=== PATIENT | male | born 1945 | race Caucasian/White ===

== ENCOUNTER 2017-06-26 03:20 | Inpatient (IN) | payer OTHER, MEDICARE ==
[2017-06-26] VITALS (14 sets, daily range): BP systolic 150–178; BP diastolic 66–108; PULSE 102–124; RESP 18–28; TEMP 97.3–98.6; O2SAT 93–100
[~2017-06-26] VITALS: Ht 172.7 cm; Wt 86.4 kg
--- NOTE | 2017-06-26 03:35 | PD ---
HPI Chief Complaint: Respiratory Distress Time Seen by Provider: 03:22 Travel History International Travel<30 days: No Contact w/Intl Traveler<30days: No Traveled to known affect area: No History of Present Illness HPI 71-year-old male complains of shortness of breath. Patient has history of COPD. Patient started having shortness of breath tonight. Patient denies any chest pain. Patient denies any fever or coughing congestion. PFSH Past Medical History Asthma: Yes Diminished Hearing: No Hypertension: Yes Tetanus Vaccination: Unknown Influenza Vaccination: No Past Surgical History Surgical History: Unable to Obtain Social History Alcohol Use: No Tobacco Use: No Substance Use: No Allergies-Medications (Allergen,Severity, Reaction): Coded Allergies: HMG-CoA Reductase Inhibitors (Verified Allergy, Unknown, 06/26/17) Singulair (Verified Allergy, Unknown, 06/26/17) Review of Systems General / Constitutional: No: Fever Eyes: No: Visual changes HENT: No: Headaches Cardiovascular: No: Chest Pain or Discomfort Respiratory: Positive: Shortness of Breath Gastrointestinal: No: Abdominal Pain Genitourinary: No: Dysuria Musculoskeletal: No: Pain Skin: No Rash Neurologic: No: Weakness Psychiatric: No: Depression Endocrine: No: Polydipsia Hematologic/Lymphatic: No: Easy Bruising Physical Exam Narrative GENERAL: Well-nourished, well-developed patient. Patient's tachypnea, moderate respiratory distress. SKIN: Focused skin assessment warm/dry. HEAD: Normocephalic. EYES: No scleral icterus. No injection or drainage. NECK: Supple, trachea midline. No JVD or lymphadenopathy. CARDIOVASCULAR: Regular rate and rhythm without murmurs, gallops, or rubs. RESPIRATORY: Patient has moderate expiratory wheezes bilaterally. Decreased breath sounds bilaterally. Few rhonchi at the bases. GASTROINTESTINAL: Abdomen soft, non-tender, nondistended. MUSCULOSKELETAL: No cyanosis, or edema. BACK: Nontender without obvious deformity. No CVA tenderness. neurologic exam normal. Data Data Last Documented VS Vital Signs Date Time Temp Pulse Resp B/P Pulse Ox O2 Delivery O2 Flow Rate FiO2 06/26/17 03:55 100 40 06/26/17 03:30 98.6 124 28 178/108 06/26/17 03:29 Aerosol Mask 8 Orders Complete Blood Count With Diff (06/26/17 03:22) Comprehensive Metabolic Panel (06/26/17 03:22) B-Type Natriuretic Peptide (06/26/17 03:22) Act Partial Throm Time (Ptt) (06/26/17 03:22) Prothrombin Time / Inr (Pt) (06/26/17 03:22) Arterial Blood Gas (Abg) (06/26/17 03:22) Influenzae A/B Antigen (06/26/17 03:22) Blood Culture (06/26/17 03:22) Iv Access Insert/Monitor (06/26/17 03:22) Ecg Monitoring (06/26/17 03:22) Oximetry (06/26/17 03:22) Oxygen Administration (06/26/17 03:22) Chest, Single Ap (06/26/17 03:22) Albuterol-Ipratropium Neb (Duoneb Neb) (06/26/17 03:30) Resp Bipap / Cpap Non Invas Vt (06/26/17 03:22) Labs Laboratory Tests Test 06/26/17 06/26/17 03:40 04:29 Prothrombin Time 10.7 SEC Prothromb Time International 1.0 RATIO Ratio Activated Partial 25.8 SEC Thromboplast Time Sodium Level 133 MEQ/L Potassium Level 4.5 MEQ/L Chloride Level 99 MEQ/L Carbon Dioxide Level 22.9 MEQ/L Anion Gap 11 MEQ/L Blood Urea Nitrogen 11 MG/DL Creatinine 0.79 MG/DL Estimat Glomerular Filtration 97 ML/MIN Rate Random Glucose 143 MG/DL Calcium Level 9.0 MG/DL Total Bilirubin 0.4 MG/DL Aspartate Amino Transf 21 U/L (AST/SGOT) Alanine Aminotransferase 27 U/L (ALT/SGPT) Alkaline Phosphatase 77 U/L B-Type Natriuretic Peptide 25 PG/ML Total Protein 8.1 GM/DL Albumin 4.1 GM/DL Blood Gas Puncture Site LT RADIAL Blood Gas Patient Temperature 98.6 Blood Gas HCO3 20 mmol/L Blood Gas Base Excess -4.2 mmol/L Blood Gas Oxygen Saturation 98 % Arterial Blood pH 7.38 Arterial Blood Partial 35 mmHg Pressure CO2 Arterial Blood Partial 172 mmHG Pressure O2 Arterial Blood Oxygen Content 20.3 Vol % Arterial Blood 0.7 % Carboxyhemoglobin Arterial Blood Methemoglobin 0.6 % Blood Gas Hemoglobin 14.5 G/DL Oxygen Delivery Device BiPAP Blood Gas Ventilator Setting IPAP12/EPAP5 Blood Gas Inspired Oxygen 40 % MDM Medical Decision Making Medical Screen Exam Complete: Yes Emergency Medical Condition: Yes Interpretation(s) Last Impressions Chest X-Ray 06/26/17 0322 Signed Impressions: Service Date/Time: Monday, June 26, 2017 03:29 - CONCLUSION: No acute disease. Mukesh Ortiz MD ABG on BiPAP, pH 7.38. PCO2 35. PO2 172. CMP within normal limit. BNP 25. Differential Diagnosis Differential diagnosis including acute exacerbation COPD, bronchitis, pneumonia , CHF, PE, pneumothorax. Narrative Course 71-year-old male with increasing shortness of breath. History of COPD. Patient received albuterol treatment and IV Solu-Medrol by EMS. Albuterol with Atrovent unit dose treatment 3. Diagnosis Primary Impression: COPD with acute exacerbation Admitting Information Admitting Physician Requests: Admit Fadi Kerr MD Jun 26, 2017 03:35
[2017-06-26] MEDS: RESP: ALBUTEROL 2.5 MG/IPRATROPIUM 0.5 MG NEB (SCH) INH (03:57)
--- NOTE | 2017-06-26 04:02 | RADRPT ---
EXAM DATE/TIME: 06/26/2017 03:29 [place] COMPARISON: No previous studies available for comparison. INDICATIONS : Shortness of breath MEDICAL HISTORY : None. SURGICAL HISTORY : None. ENCOUNTER: Initial ACUITY: 1 day PAIN SCORE: 8/10 LOCATION: Bilateral chest FINDINGS: A single view of the chest demonstrates the lungs to be symmetrically aerated without evidence of mas s, infiltrate or effusion. The cardiomediastinal contours are unremarkable. Osseous structures are intact. There are overlying electrocardiogram leads and oxygen tubing. CONCLUSION: No acute disease. Mukesh Ortiz MD on June 26, 2017 at 4:00 Board Certified Radiologist. This report was verified electronically.
[2017-06-26 04:15] LABS: APTT (PATIENT) 25.8 SEC (24.3-30.1); PROTHROMBIN TIME - PATIENT 10.7 SEC (9.8-11.6)
[2017-06-26 04:17] LABS: ANION GAP 11 MEQ/L (5-15); AST (GOT) 21 U/L (15-37); BICARBONATE 22.9 MEQ/L (21.0-32.0); BLOOD UREA NITROGEN 11 MG/DL (7-18); CHLORIDE 99 MEQ/L (98-107); GLOMERULAR FILTRATION RATE 97 ML/MIN (>89); POTASSIUM 4.5 MEQ/L (3.5-5.1); SODIUM (NA) 133 MEQ/L (136-145)
[2017-06-26 04:21] LABS: ALKALINE PHOSPHATASE 77 U/L (45-117); ALT (GPT) 27 U/L (12-78); TOTAL BILIRUBIN ADULT 0.4 MG/DL (0.2-1.0)
[2017-06-26 04:43] LABS: BLOOD GAS BASE EXCESS -4.2 mmol/L (-2-2); BLOOD GAS CARBOXYHEMOGLOBIN 0.7 % (0-4); BLOOD GAS HCO3 20 mmol/L (22-26); BLOOD GAS METHEMOGLOBIN 0.6 % (0-2); BLOOD GAS O2 HGB SATURATION 98 % (90-100); BLOOD GAS OXYGEN CONTENT 20.3 Vol % (12.0-20.0); BLOOD GAS PCO2 35 mmHg (38-42); BLOOD GAS PO2 172 mmHG (61-120); BLOOD GAS TOTAL HGB 14.5 G/DL (12.0-16.0); CRITICAL VALUE NO; DRAW SITE LT RADIAL; FIO2 40 %; NUMBER OF ARTERIAL PUNCTURES 2; OXYGEN DEVICE BiPAP; STAT YES; TEMP CORR TO 98.6; ULNAR PULSE PRESENT; VENT SETTINGS IPAP12/EPAP5
[2017-06-26] MEDS ORDERED: cefTRIAXone INJ 1,000 MG in SODIUM CHLORIDE 0.9% INJ 100 ML IV ONE (05:45)
[2017-06-26] MEDS ORDERED: AZITHROMYCIN INJ 500 MG in SODIUM CHLOR 0.9% 250 ML INJ 250 ML IV ONE (05:45)
[2017-06-26 05:50] LABS: AUTOMATED NEUTROPHIL # 15.9 TH/MM3 (1.8-7.7); BASOPHIL % 0.3 % (0.0-2.0); EOSINOPHIL % 0.1 % (0.0-4.0); HEMATOCRIT 40.4 % (39.0-51.0); HEMO FLAGS DIFF FINAL; LYMPH % 3.7 % (9.0-44.0); LYMPHOCYTE # 0.6 TH/MM3 (1.0-4.8); MEAN CELL VOLUME 92.3 FL (80.0-100.0); MEAN CORPUSCULAR HEMOGLOBIN 32.6 PG (27.0-34.0); MEAN CORPUSCULAR HGB CONC 35.4 % (32.0-36.0); MONO % 1.9 % (0.0-8.0); PLATELET COUNT 333 TH/MM3 (150-450); RED BLOOD COUNT 4.38 MIL/MM3 (4.50-5.90); RED CELL DISTRIBUTION WIDTH 12.9 % (11.6-17.2)
[2017-06-26] MEDS ORDERED: MAGNESIUM HYDROXIDE SUSP 30 ML CUP PO PRN (06:30)
[2017-06-26] MEDS ORDERED: BISACODYL 10 MG SUPP RECTAL PRN (06:30)
[2017-06-26] MEDS ORDERED: ACETAMINOPHEN 325 MG TAB PO PRN (06:30)
[2017-06-26] MEDS ORDERED: ACETAMINOPHEN/HYDROcodone 325 MG/10 MG TAB PO PRN (06:30)
[2017-06-26] MEDS ORDERED: ACETAMINOPHEN/HYDROcodone 325 MG/5 MG TAB PO PRN (06:30)
[2017-06-26] MEDS ORDERED: SENNOSIDES 8.6 MG TAB PO PRN (06:30)
[2017-06-26] MEDS: methylPREDNISolone SOD SUCC 40 MG/1 ML VIAL IV PUSH SCH ×3 (06:30→16:34)
[2017-06-26] MEDS ORDERED: ONDANSETRON HCL 4 MG/2 ML VIAL IVP PRN (06:30)
[2017-06-26] MEDS ORDERED: LACTULOSE SYRUP 20 GM/30 ML CUP PO PRN (06:30)
[2017-06-26] MEDS: RESP: ALBUTEROL 2.5 MG/IPRATROPIUM 0.5 MG NEB (PRN) NEB ×2 (06:34→20:19)
[2017-06-26] MEDS ORDERED: ZETI10TA5 PO (06:57)
[2017-06-26] MEDS: RESP: ALBUTEROL 2.5 MG/IPRATROPIUM 0.5 MG NEB (SCH) NEB ×4 (07:14→19:02)
[2017-06-26] MEDS: HEPARIN SODIUM - SQ 10,000 UNITS/ML VIAL SQ SCH ×2 (08:55→20:42)
[2017-06-26] MEDS ORDERED: FLUMAZENIL 0.5 MG/5 ML VIAL IV PUSH PRN (09:00)
[2017-06-26] MEDS ORDERED: cloNIDine HCL 0.1 MG TAB PO PRN (09:00)
[2017-06-26] MEDS ORDERED: HALOPERIDOL LACTATE 5 MG/ML AMP IM PRN (09:00)
[2017-06-26] MEDS: MULTIVITAMINS/MINERALS THERAPEUTIC TAB PO SCH (09:00)
[2017-06-26] MEDS: SODIUM CHLORIDE 0.9% FLUSH 10 ML FLUSH IV FLUSH SCH ×2 (09:00→20:43)
[2017-06-26] MEDS ORDERED: LORazepam 2 MG/ML VIAL IV PUSH PRN ×4 (09:00)
[2017-06-26] MEDS ORDERED: LORazepam 2 MG TAB PO PRN (09:00)
[2017-06-26] MEDS: BUDESONIDE-FORMOTEROL 160/4.5 MCG INHALER INH SCH ×2 (09:00→20:43)
--- NOTE | 2017-06-26 09:00 | HHI.HP ---
[facility] Non-Staff Admission Diagnosis acute exacerbation COPD Diagnoses: Chief Complaint: shortness of breath Travel History International Travel<30 Days: No Contact w/Intl Traveler <30 Da: No Traveled to Known Affected Are: No History of Present Illness Written by Lora Bangura, acting as scribe for Dr. Mejia on 06/26/17 at 08:52. This note was transcribed by scribPAUL Zamora. I, Dr. Gregory Mejia personally performed the history, physical exam, and medical decision making; and confirmed the accuracy of the information in the transcribed note. Authenticated by Dr. Gregory Mejia on 06/26/17 at 21:43. 71-year-old male with history of COPD, O2 dependent at bedtime with 2L NC, HLD, borderline HTN, prior tobacco use, presents with acute onset of shortness of breath today 06/26. The patient reports he presented to the hospital because he had an allergic reaction to a new medication "for-bud" which is a combination of formoterol/ipratropium/budesonide. The patient states 2 weeks ago he had an allergic reaction to Singulair with lip swelling and he was finally getting over that, then started taking this new combination medication approximately 1 week ago. This morning after taking the new medication he became acutely short of breath, flushed, with wheezing. He denies any cough or fevers/chills. Denies any lip or tongue swelling. Denies any dysphagia. His PCP is Dr. Sanjuana Licea. He reports he has tried multiple COPD medications in the past but doesn't usually work for him. The only medication regimen that did keep his COPD somewhat under control was with Symbicort bid and duonebs tid. 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 Denies any recent travel. Upon his arrival he was tachypneic RR 32 with labored breathing. He was placed on bipap with significant improvement. Review of Systems Except as stated in HPI: all other systems reviewed are Neg Past Family Social History Past Medical History COPD, on O2 2L NC at night Borderline Hypertension, not on meds Hyperlipidemia Undergoing outpatient work up for "protein loss" Past Surgical History Chest tube age 21 for pneumothorax Reported Medications Zetia (Ezetimibe) 10 Mg Tab 10 Mg PO DAILY Formoterol/budesonide/ipratropium combination Duonebs tid Allergies: Coded Allergies: HMG-CoA Reductase Inhibitors (Verified Allergy, Unknown, 06/26/17) Singulair (Verified Allergy, Unknown, 06/26/17) Active Ordered Medications Current Medications Medications (Trade) Dose Ordered Sig/Carlos Route Start Time Stop Time Status Last Admin (SoluMEDROL INJ) 40 mg Q6HR IV PUSH 06/26/17 06:30 (Mucinex Er) 600 mg BID PO 06/26/17 09:00 (Symbicort 160-4.5 Inh) 2 puff Q12HR INH 06/26/17 09:00 (NS Flush) 2 ml UNSCH PRN IV FLUSH 06/26/17 06:30 (NS Flush) 2 ml BID IV FLUSH 06/26/17 09:00 (Zofran Inj) 4 mg Q6H PRN IVP 06/26/17 06:30 (Heparin Inj) 5,000 units Q12H SQ 06/26/17 09:00 06/26/17 08:55 (Tylenol) 650 mg Q6H PRN PO 06/26/17 06:30 (Semora 5-325 Mg) 1 tab Q4H PRN PO 06/26/17 06:30 (Semora 10-325 Mg) 1 tab Q4H PRN PO 06/26/17 06:30 (Isabella-Colace) 1 tab BID PO 06/26/17 09:00 (Milk Of Magnesia Liq) 30 ml Q12H PRN PO 06/26/17 06:30 (Senokot) 17.2 mg Q12H PRN PO 06/26/17 06:30 (Dulcolax Supp) 10 mg DAILY PRN RECTAL 06/26/17 06:30 (Lactulose Liq) 30 ml DAILY PRN PO 06/26/17 06:30 (Folate) 1 mg DAILY PO 06/26/17 09:00 07/01/17 08:59 (Vitamin B1) 100 mg DAILY PO 06/26/17 09:00 (Theragran M Tab) 1 tab DAILY PO 06/26/17 09:00 07/01/17 08:59 (Catapres) 0.1 mg Q6H PRN PO 06/26/17 09:00 (Romazicon Inj) 0.2 mg Q1M PRN IV PUSH 06/26/17 09:00 (Ativan) 1 mg Q4H PRN PO 06/26/17 09:00 (Ativan Inj) 1 mg Q4H PRN IV PUSH 06/26/17 09:00 (Ativan) 2 mg Q2H PRN PO 06/26/17 09:00 (Ativan Inj) 2 mg Q2H PRN IV PUSH 06/26/17 09:00 (Ativan Inj) 2 mg Q1H PRN IV PUSH 06/26/17 09:00 (Ativan Inj) 2 mg Q15M PRN IV PUSH 06/26/17 09:00 (Haldol Inj) 2 mg Q15M PRN IM 06/26/17 09:00 (Vibramycin) 100 mg BID PO 06/26/17 21:00 07/01/17 20:59 Family History Mother with diabetes and Alzheimer's, age 85 Father with emphysema Son with emphysema Social History Smoked tobacco since teenage years to age 54, quit in year 1999 Drinks alcohol, 5-7beers daily Denies any illicit drug use Physical Exam Vital Signs Vital Signs Date Time Temp Pulse Resp B/P Pulse Ox O2 Delivery O2 Flow Rate FiO2 06/26/17 07:14 97 Nasal Cannula 3.00 06/26/17 07:06 116 19 157/73 97 Nasal Cannula 3 06/26/17 06:00 97 Nasal Cannula 3.00 06/26/17 03:55 100 40 06/26/17 03:30 98.6 124 28 178/108 98 06/26/17 03:29 98 Aerosol Mask 8 06/26/17 03:29 26 98 Aerosol Mask 8 06/26/17 03:28 96 Nasal Cannula 3.00 06/26/17 03:24 32 96 Nasal Cannula 4 Physical Exam GENERAL: Well-nourished, well-developed male patient in NAD. SKIN: Warm and dry. No rash. HEAD: Normocephalic. Atraumatic. EYES: Pupils equal and round. No scleral icterus. No injection or drainage. ENT: No nasal bleeding or discharge. Mucous membranes pink and moist. NECK: Supple. Trachea midline. CARDIOVASCULAR: Tachycardic, regular rhythm. S1, S2 noted. No murmur appreciated. RESPIRATORY: No accessory muscle use. Clear to auscultation. Breath sounds equal bilaterally. GASTROINTESTINAL: Abdomen soft, non-tender, nondistended. Normoactive bowel sounds x4. MUSCULOSKELETAL: No obvious deformities. Extremities without clubbing, cyanosis , or edema. Bilateral calves nontender. NEUROLOGICAL: Awake and alert. No obvious cranial nerve deficits. Motor grossly within normal limits. Moves all extremities spontaneously. Normal speech. PSYCHIATRIC: Appropriate mood and affect; insight and judgment normal. Laboratory Laboratory Tests Test 06/26/17 06/26/17 06/26/17 03:40 04:29 05:38 Prothrombin Time 10.7 Prothromb Time International 1.0 Ratio Activated Partial 25.8 Thromboplast Time Sodium Level 133 Potassium Level 4.5 Chloride Level 99 Carbon Dioxide Level 22.9 Anion Gap 11 Blood Urea Nitrogen 11 Creatinine 0.79 Estimat Glomerular Filtration 97 Rate Random Glucose 143 Calcium Level 9.0 Total Bilirubin 0.4 Aspartate Amino Transf 21 (AST/SGOT) Alanine Aminotransferase 27 (ALT/SGPT) Alkaline Phosphatase 77 B-Type Natriuretic Peptide 25 Total Protein 8.1 Albumin 4.1 Blood Gas Puncture Site LT RADIAL Blood Gas Patient Temperature 98.6 Blood Gas HCO3 20 Blood Gas Base Excess -4.2 Blood Gas Oxygen Saturation 98 Arterial Blood pH 7.38 Arterial Blood Partial 35 Pressure CO2 Arterial Blood Partial 172 Pressure O2 Arterial Blood Oxygen Content 20.3 Arterial Blood 0.7 Carboxyhemoglobin Arterial Blood Methemoglobin 0.6 Blood Gas Hemoglobin 14.5 Oxygen Delivery Device BiPAP Blood Gas Ventilator Setting IPAP12/EPAP5 Blood Gas Inspired Oxygen 40 White Blood Count 17.0 Red Blood Count 4.38 Hemoglobin 14.3 Hematocrit 40.4 Mean Corpuscular Volume 92.3 Mean Corpuscular Hemoglobin 32.6 Mean Corpuscular Hemoglobin 35.4 Concent Red Cell Distribution Width 12.9 Platelet Count 333 Mean Platelet Volume 7.0 Neutrophils (%) (Auto) 94.0 Lymphocytes (%) (Auto) 3.7 Monocytes (%) (Auto) 1.9 Eosinophils (%) (Auto) 0.1 Basophils (%) (Auto) 0.3 Neutrophils # (Auto) 15.9 Lymphocytes # (Auto) 0.6 Monocytes # (Auto) 0.3 Eosinophils # (Auto) 0.0 Basophils # (Auto) 0.0 CBC Comment DIFF FINAL Differential Comment Date/Time Procedure Status Source Growth 06/26/17 03:40 Aerobic Blood Culture Received Blood Peripheral Pending 06/26/17 03:40 Anaerobic Blood Culture Received Blood Peripheral Pending Result Diagram: 06/26/17 0538 06/26/17 0340 Imaging Last Impressions Chest X-Ray 06/26/17 0322 Signed Impressions: Service Date/Time: Monday, June 26, 2017 03:29 - CONCLUSION: No acute disease. Mukesh Ortiz MD Assessment and Plan Problem List: (1) COPD with acute exacerbation ICD Code: J44.1 Status: Acute (2) Sepsis ICD Code: A41.9 Status: Acute (3) Acute bronchitis ICD Code: J20.9 Status: Acute Assessment and Plan 71-year-old male with history of COPD, O2 dependent at bedtime with 2L NC, HLD, borderline HTN, prior tobacco use, presents with acute onset of shortness of breath today 06/26. Sepsis with Acute Bronchitis, Possible Early Pneumonia: meets sepsis criteria with leukocytosis WBC 17K, tachypneic RR 32, tachycardic HR 124, with suspect source bronchitis vs early pneumonia. CXR images reviewed, clear per radiologist however possible right base developing consolidation. S/p IV Rocephin/Azithro, tangela in the ED. -Start on Doxycycline 100mg bid x5days -Check blood cultures, sputum culture -Monitor for improvement COPD Exacerbation with Acute Respiratory Distress: possible allergic reaction per patient, recently started on formoterol/budesonide/ipratropium combination as outpatient. S/p treatment with Bipap in the ED, now stable on NC. -continue O2 as needed -incentive spirometry -duonebs q4h and q2h prn -steroids with IV Solumedrol 40mg q6h -continue Symbicort bid -monitor for improvement Hyperlipidemia: chronic, stable -continue patient's Zetia Borderline Hypertension: not on medications, BP elevated at 178/108, possibly secondary to acute respiratory distress. -added clonidine prn -consider adding daily antihypertensive -monitor BP Alcohol Abuse: patient drinks 5-7 beers daily. Denies history of withdrawal. 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 In the case of services not specified as inpatient-only, they are appropriately provided as inpatient services in accordance with the 2-midnight benchmark. Estimated LOS (days): 2 days is the estimated time the patient will need to remain in the hospital, assuming treatment plan goals are met and no additional complications. Post-Hospital Plan: Home Lora Bangura PA-C Jun 26, 2017 09:00 Alireza Mejia DO Jun 26, 2017 21:44
[2017-06-26] MEDS: DOCUSATE SODIUM 50 MG/SENNA 8.6 MG TAB PO SCH ×2 (11:26→20:42)
[2017-06-26] MEDS: FOLIC ACID 1 MG TAB PO SCH (11:26)
[2017-06-26] MEDS: guaiFENesin E.R. 600 MG TAB PO SCH ×2 (11:26→20:42)
[2017-06-26] MEDS: THIAMINE HCL 100 MG TAB PO SCH (11:26)
[2017-06-26] MEDS: LORazepam 1 MG TAB PO PRN ×3 (13:13→20:42)
[2017-06-26] MEDS ORDERED: NEONATAL STARTER TPN 250 IV SCH (16:00)
[2017-06-26] MEDS: DOXYCYCLINE HYCLATE 100 MG CAP PO SCH (20:42)
[2017-06-27] VITALS (10 sets, daily range): BP systolic 129–169; BP diastolic 60–77; PULSE 93–115; RESP 18–24; TEMP 97.2–97.7; O2SAT 93–99
[2017-06-27] MEDS: LORazepam 1 MG TAB PO PRN ×2 (00:26→11:38)
[2017-06-27] MEDS: methylPREDNISolone SOD SUCC 40 MG/1 ML VIAL IV PUSH SCH ×5 (00:27→23:48)
[2017-06-27] MEDS ORDERED: LEVOFLOXACIN 750 MG PREMIX INJ 150 ML IV SCH (06:00)
[2017-06-27] MEDS: RESP: ALBUTEROL 2.5 MG/IPRATROPIUM 0.5 MG NEB (SCH) NEB ×4 (07:47→19:08)
[2017-06-27] MEDS: DOCUSATE SODIUM 50 MG/SENNA 8.6 MG TAB PO SCH ×2 (09:00→20:25)
[2017-06-27] MEDS: FOLIC ACID 1 MG TAB PO SCH (09:10)
[2017-06-27] MEDS: HEPARIN SODIUM - SQ 10,000 UNITS/ML VIAL SQ SCH ×2 (09:10→20:25)
[2017-06-27] MEDS: guaiFENesin E.R. 600 MG TAB PO SCH ×2 (09:10→20:25)
[2017-06-27] MEDS: EZETIMIBE 10 MG TAB PO SCH (09:10)
[2017-06-27] MEDS: MULTIVITAMINS/MINERALS THERAPEUTIC TAB PO SCH (09:10)
[2017-06-27] MEDS: THIAMINE HCL 100 MG TAB PO SCH (09:10)
[2017-06-27] MEDS: DOXYCYCLINE HYCLATE 100 MG CAP PO SCH ×2 (09:10→21:07)
[2017-06-27] MEDS: amLODIPine BESYLATE 5 MG TAB PO SCH (09:10)
[2017-06-27] MEDS: SODIUM CHLORIDE 0.9% FLUSH 10 ML FLUSH IV FLUSH SCH ×2 (09:14→20:25)
[2017-06-27] MEDS: BUDESONIDE-FORMOTEROL 160/4.5 MCG INHALER INH SCH ×2 (09:14→21:08)
[2017-06-27 12:41] LABS: AUTOMATED NEUTROPHIL # 16.9 TH/MM3 (1.8-7.7); BASOPHIL % 0.1 % (0.0-2.0); HEMATOCRIT 39.4 % (39.0-51.0); HEMO FLAGS DIFF FINAL; LYMPHOCYTE # 0.9 TH/MM3 (1.0-4.8); MEAN CELL VOLUME 94.3 FL (80.0-100.0); MEAN CORPUSCULAR HEMOGLOBIN 31.5 PG (27.0-34.0); MEAN CORPUSCULAR HGB CONC 33.4 % (32.0-36.0); MONO % 4.8 % (0.0-8.0); NEUT % 90.1 % (16.0-70.0); PLATELET COUNT 390 TH/MM3 (150-450); RED BLOOD COUNT 4.18 MIL/MM3 (4.50-5.90); RED CELL DISTRIBUTION WIDTH 13.7 % (11.6-17.2); WHITE BLOOD COUNT 18.8 TH/MM3 (4.0-11.0)
[2017-06-27 13:11] LABS: ANION GAP 13 MEQ/L (5-15); AST (GOT) 32 U/L (15-37); BICARBONATE 22.4 MEQ/L (21.0-32.0); BLOOD UREA NITROGEN 22 MG/DL (7-18); CHLORIDE 97 MEQ/L (98-107); GLOMERULAR FILTRATION RATE 62 ML/MIN (>89); POTASSIUM 4.7 MEQ/L (3.5-5.1); SODIUM (NA) 132 MEQ/L (136-145)
[2017-06-27 13:17] LABS: ALKALINE PHOSPHATASE 74 U/L (45-117); ALT (GPT) 27 U/L (12-78); TOTAL BILIRUBIN ADULT 0.4 MG/DL (0.2-1.0)
--- NOTE | 2017-06-27 13:59 | HHI.PR ---
Subjective Remarks Follow up for acute COPD exacerbation. Patient is currently doing well on supplemental O2. No fever, chills. He feels like he is progressing well to his baseline. Would like to go home soon. Objective Vitals Vital Signs Date Time Temp Pulse Resp B/P Pulse Ox O2 Delivery O2 Flow Rate FiO2 06/27/17 12:05 97.7 104 19 129/60 98 06/27/17 08:40 96 06/27/17 08:40 Nasal Cannula 2.00 06/27/17 08:05 97.6 93 18 147/72 97 06/27/17 07:49 97 Nasal Cannula 2.00 06/27/17 04:00 97.2 109 24 161/74 93 06/27/17 04:00 Nasal Cannula 3.00 06/27/17 00:00 Nasal Cannula 3.00 06/26/17 23:37 98.4 102 18 150/66 97 06/26/17 20:43 97.3 117 20 150/72 96 06/26/17 20:00 Nasal Cannula 3.00 06/26/17 20:00 103 06/26/17 16:07 98.2 109 21 173/71 96 06/26/17 16:00 Nasal Cannula 3.00 06/26/17 15:30 93 Nasal Cannula 2.00 I/O 06/26/17 06/26/17 06/26/17 06/27/17 06/27/17 06/27/17 07:00 15:00 23:00 07:00 15:00 23:00 Intake Total 360 ml 240 ml 0 ml Output Total 400 ml 400 ml 0 ml Balance -40 ml -160 ml 0 ml Intake Oral 360 ml 240 ml 0 ml IV Total 0 ml Output Urine Total 400 ml 400 ml 0 ml # Voids 1 # Bowel Movements 0 0 0 Result Diagram: 06/27/17 1204 06/27/17 1204 Imaging Last Impressions Chest X-Ray 06/26/17 0322 Signed Impressions: Service Date/Time: Monday, June 26, 2017 03:29 - CONCLUSION: No acute disease. Mukesh Ortiz MD Objective Remarks GENERAL: AOX3, NAD. SKIN: Warm and dry. HEAD: Normocephalic. EYES: No scleral icterus. No injection or drainage. NECK: Supple, trachea midline. No JVD or lymphadenopathy. CARDIOVASCULAR: Regular rate and rhythm without murmurs, gallops, or rubs. RESPIRATORY: Moderate air entry. No accessory muscle use. GASTROINTESTINAL: Abdomen soft, non-tender, nondistended. MUSCULOSKELETAL: No cyanosis, or edema. BACK: Nontender without obvious deformity. No CVA tenderness. Procedures None. A/P Problem List: (1) COPD with acute exacerbation ICD Code: J44.1 Status: Acute (2) Sepsis ICD Code: A41.9 Status: Acute (3) Acute bronchitis ICD Code: J20.9 Status: Acute Assessment and Plan 71-year-old male with history of COPD, O2 dependent at bedtime with 2L NC, HLD, borderline HTN, prior tobacco use, presents with acute onset of shortness of breath today 06/26. Sepsis with Acute Bronchitis, Possible Early Pneumonia: meets sepsis criteria with leukocytosis WBC 17K, tachypneic RR 32, tachycardic HR 124, with suspect source bronchitis vs early pneumonia. CXR images reviewed, clear per radiologist however possible right base developing consolidation. S/p IV Rocephin/Azithro, duonebs in the ED. COPD Exacerbation with Acute Respiratory Distress - possible allergic reaction per patient, recently started on formoterol/ budesonide/ipratropium combination as outpatient. - S/p treatment with Bipap in the ED, now stable on NC. - Doxycycline 100mg bid x5days - Blood cx negative so far. Sputum cx pending. - Continue DuoNeb, Symbicort, Steroid. - Elevated WBC is likely due to steroid. Hyperlipidemia: chronic, stable -continue patient's Zetia Hypertension - Start Amlodipine 5mg Qday. May need to be increased. Continue Clonidine PRN. Alcohol Abuse: patient drinks 5-7 beers daily. Denies history of withdrawal. - Continue thiamine/folate/MV - CIWA protocol - Mild Acute kidney injury - Creatinine 0.79 --> 1.17 - Repeat BMP in the AM. Full code. Heparin SQ. Alireza Mejia DO Jun 27, 2017 13:58
[2017-06-27] MEDS ORDERED: [UNRECOGNIZED DRUG - NUTRITION] IV SCH (16:00)
[2017-06-27] MEDS: SODIUM CHLORIDE 0.9% FLUSH 10 ML FLUSH IV FLUSH PRN (23:49)
[2017-06-28 04:27] VITALS: BP 135/71; PULSE 85; RESP 18; TEMP 97.5; O2SAT 96
[2017-06-28] MEDS: methylPREDNISolone SOD SUCC 40 MG/1 ML VIAL IV PUSH SCH (05:06)
[2017-06-28] MEDS: SODIUM CHLORIDE 0.9% FLUSH 10 ML FLUSH IV FLUSH PRN (05:07)
[2017-06-28 05:52] VITALS: O2SAT 98
[2017-06-28] MEDS: RESP: ALBUTEROL 2.5 MG/IPRATROPIUM 0.5 MG NEB (PRN) NEB (05:52)
[2017-06-28 08:00] VITALS: O2SAT 99
[2017-06-28 08:04] VITALS: BP 161/75; PULSE 91; RESP 19; TEMP 98.5; O2SAT 97
[2017-06-28] MEDS: RESP: ALBUTEROL 2.5 MG/IPRATROPIUM 0.5 MG NEB (SCH) NEB (08:09)
[2017-06-28 08:30] LABS: AUTOMATED NEUTROPHIL # 17.4 TH/MM3 (1.8-7.7); BASOPHIL # 0.1 TH/MM3 (0-0.2); BASOPHIL % 0.3 % (0.0-2.0); HEMATOCRIT 39.6 % (39.0-51.0); HEMO FLAGS DIFF FINAL; LYMPH % 3.5 % (9.0-44.0); LYMPHOCYTE # 0.6 TH/MM3 (1.0-4.8); MEAN CELL VOLUME 92.8 FL (80.0-100.0); MEAN CORPUSCULAR HEMOGLOBIN 32.4 PG (27.0-34.0); MEAN CORPUSCULAR HGB CONC 34.9 % (32.0-36.0); NEUT % 93.2 % (16.0-70.0); PLATELET COUNT 379 TH/MM3 (150-450); RED BLOOD COUNT 4.27 MIL/MM3 (4.50-5.90); RED CELL DISTRIBUTION WIDTH 13.8 % (11.6-17.2); WHITE BLOOD COUNT 18.7 TH/MM3 (4.0-11.0)
[2017-06-28] MEDS: EZETIMIBE 10 MG TAB PO SCH (08:48)
[2017-06-28] MEDS: DOXYCYCLINE HYCLATE 100 MG CAP PO SCH (08:48)
[2017-06-28] MEDS: THIAMINE HCL 100 MG TAB PO SCH (08:49)
[2017-06-28] MEDS: MULTIVITAMINS/MINERALS THERAPEUTIC TAB PO SCH (08:49)
[2017-06-28] MEDS: guaiFENesin E.R. 600 MG TAB PO SCH (08:49)
[2017-06-28] MEDS: FOLIC ACID 1 MG TAB PO SCH (08:49)
[2017-06-28] MEDS: amLODIPine BESYLATE 5 MG TAB PO SCH (08:50)
[2017-06-28] MEDS: HEPARIN SODIUM - SQ 10,000 UNITS/ML VIAL SQ SCH (08:50)
[2017-06-28 08:51] LABS: POTASSIUM 4.5 MEQ/L (3.5-5.1)
[2017-06-28] MEDS: DOCUSATE SODIUM 50 MG/SENNA 8.6 MG TAB PO SCH (08:51)
[2017-06-28] MEDS: SODIUM CHLORIDE 0.9% FLUSH 10 ML FLUSH IV FLUSH SCH (08:56)
[2017-06-28] MEDS: BUDESONIDE-FORMOTEROL 160/4.5 MCG INHALER INH SCH (08:57)
[2017-06-28] MEDS ORDERED: DOXY100C PO (09:00)
[2017-06-28] MEDS ORDERED: SYMB160A INH (09:00)
[2017-06-28] MEDS ORDERED: FOLI1TAB6 PO (09:00)
[2017-06-28] MEDS ORDERED: EPIP0.3I IM (09:00)
[2017-06-28] MEDS ORDERED: AMLO5 PO (09:00)
[2017-06-28] MEDS ORDERED: GNP100TA3 PO (09:00)
[2017-06-28] MEDS ORDERED: PRED10 PO (09:02)
--- NOTE | 2017-06-28 09:02 | HHI.DS ---
Discharge Summary Admission Date Jun 26, 2017 at 6:09 am Discharge Date: Jun 28, 2017 Admitting Diagnosis acute exacerbation COPD (1) COPD with acute exacerbation ICD Code: J44.1 Diagnosis: Principal (2) Sepsis ICD Code: A41.9 (3) Acute bronchitis ICD Code: J20.9 Procedures None. Brief History - From Admission Written by Lora Bangura, acting as scribe for Dr. Mejia on 06/26/17 at 08:52. This note was transcribed by scribe PAUL Box. I, Dr. Gregory Mejia personally performed the history, physical exam, and medical decision making; and confirmed the accuracy of the information in the transcribed note. Authenticated by Dr. Gregory Mejia on 06/26/17 at 21:43. 71-year-old male with history of COPD, O2 dependent at bedtime with 2L NC, HLD, borderline HTN, prior tobacco use, presents with acute onset of shortness of breath today 06/26. The patient reports he presented to the hospital because he had an allergic reaction to a new medication "for-bud" which is a combination of formoterol/ipratropium/budesonide. The patient states 2 weeks ago he had an allergic reaction to Singulair with lip swelling and he was finally getting over that, then started taking this new combination medication approximately 1 week ago. This morning after taking the new medication he became acutely short of breath, flushed, with wheezing. He denies any cough or fevers/chills. Denies any lip or tongue swelling. Denies any dysphagia. His PCP is Dr. Sanjuana Licea. He reports he has tried multiple COPD medications in the past but doesn't usually work for him. The only medication regimen that did keep his COPD somewhat under control was with Symbicort bid and duonebs tid. 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 Denies any recent travel. Upon his arrival he was tachypneic RR 32 with labored breathing. He was placed on bipap with significant improvement. CBC/BMP: 06/28/17 0745 06/28/17 0745 Significant Findings Laboratory Tests Test 7/31/17 7/31/17 7/31/17 8/1/17 03:40 04:29 05:38 12:04 Sodium Level 133 MEQ/L 132 MEQ/L (136-145) (136-145) Random Glucose 143 MG/DL 209 MG/DL (74-106) (74-106) Blood Gas HCO3 20 mmol/L (22-26) Blood Gas Base Excess -4.2 mmol/L (-2-2) Arterial Blood Partial 35 mmHg (38-42) Pressure CO2 Arterial Blood Partial 172 mmHG Pressure O2 (61-120) Arterial Blood Oxygen Content 20.3 Vol % (12.0-20.0) White Blood Count 17.0 TH/MM3 18.8 TH/MM3 (4.0-11.0) (4.0-11.0) Red Blood Count 4.38 MIL/MM3 4.18 MIL/MM3 (4.50-5.90) (4.50-5.90) Neutrophils (%) (Auto) 94.0 % 90.1 % (16.0-70.0) (16.0-70.0) Lymphocytes (%) (Auto) 3.7 % 5.0 % (9.0-44.0) (9.0-44.0) Neutrophils # (Auto) 15.9 TH/MM3 16.9 TH/MM3 (1.8-7.7) (1.8-7.7) Lymphocytes # (Auto) 0.6 TH/MM3 0.9 TH/MM3 (1.0-4.8) (1.0-4.8) Mean Platelet Volume 6.9 FL (7.0-11.0) Chloride Level 97 MEQ/L (98-107) Blood Urea Nitrogen 22 MG/DL (7-18) Estimat Glomerular Filtration 62 ML/MIN (>89) Rate Test 06/28/17 07:45 White Blood Count 18.7 TH/MM3 (4.0-11.0) Red Blood Count 4.27 MIL/MM3 (4.50-5.90) Neutrophils (%) (Auto) 93.2 % (16.0-70.0) Lymphocytes (%) (Auto) 3.5 % (9.0-44.0) Neutrophils # (Auto) 17.4 TH/MM3 (1.8-7.7) Lymphocytes # (Auto) 0.6 TH/MM3 (1.0-4.8) Sodium Level 132 MEQ/L (136-145) Blood Urea Nitrogen 20 MG/DL (7-18) Estimat Glomerular Filtration 88 ML/MIN (>89) Rate Random Glucose 151 MG/DL (74-106) Imaging Last Impressions Chest X-Ray 06/26/17 0322 Signed Impressions: Service Date/Time: Monday, June 26, 2017 03:29 - CONCLUSION: No acute disease. Mukesh Ortiz MD PE at Discharge GENERAL: AOX3, NAD. SKIN: Warm and dry. HEAD: Normocephalic. EYES: No scleral icterus. No injection or drainage. NECK: Supple, trachea midline. No JVD or lymphadenopathy. CARDIOVASCULAR: Regular rate and rhythm without murmurs, gallops, or rubs. RESPIRATORY: Moderate air entry. No accessory muscle use. GASTROINTESTINAL: Abdomen soft, non-tender, nondistended. MUSCULOSKELETAL: No cyanosis, or edema. BACK: Nontender without obvious deformity. No CVA tenderness. Pt update on day of discharge Patient is doing well. No acute concerns. Denies any fever, chills. Hospital Course 71-year-old male with history of COPD, O2 dependent at bedtime with 2L NC, HLD, borderline HTN, prior tobacco use, presents with acute onset of shortness of breath today 06/26. Sepsis with Acute Bronchitis, Possible Early Pneumonia: meets sepsis criteria with leukocytosis WBC 17K, tachypneic RR 32, tachycardic HR 124, with suspect source bronchitis vs early pneumonia. CXR images reviewed, clear per radiologist however possible right base developing consolidation. S/p IV Rocephin/Azithro, duonebs in the ED. COPD Exacerbation with Acute Respiratory Distress - possible allergic reaction per patient, recently started on formoterol/ budesonide/ipratropium combination as outpatient. - S/p treatment with Bipap in the ED, now stable on NC. - Doxycycline 100mg bid x5days - Blood cx negative so far. Sputum cx pending. - Continue DuoNeb, Symbicort, Steroid. - Elevated WBC is likely due to steroid. CBC in one week after discharge. Hyperlipidemia: chronic, stable -continue patient's Zetia Hypertension - Start Amlodipine 5mg Qday. May need to be increased. Continue Clonidine PRN. Alcohol Abuse: patient drinks 5-7 beers daily. Denies history of withdrawal. - Continue thiamine/folate/MV - CIWA protocol - Mild Acute kidney injury - resolved. - Creatinine 0.79 --> 1.17 --> 0.86 Full code. Heparin SQ. Pt Condition on Discharge: Good Discharge Disposition: Discharge Home Discharge Time: > 30 minutes Discharge Instructions DIET: Follow Instructions for: Heart Healthy Diet Activities you can perform: Regular-No Restrictions Follow up Referrals: PCP Follow-up - 1 Week Pulmonology - 2 Weeks New Medications: Epinephrine Inj (Epipen 2-Emeka Inj) 0.3 Mg/0.3 Ml Pfpen 0.3 MG IM ONCE PRN ALLERGIC REACTION #1 Ref 0 PACK Prednisone (Prednisone) 10 Mg Tab 10 MG PO BID Inflammation #6 Ref 0 TAB Amlodipine (Norvasc) 5 Mg Tab 5 MG PO DAILY Blood Pressure Management #30 TAB Budesonide-Formoterol Inh (Symbicort Inh) 160-4.5 Mcg/Act Aero 2 PUFF INH Q12HR COPD #1 INHALER Doxycycline Hyclate (Doxycycline Hyclate) 100 Mg Cap 100 MG PO BID Infection #6 CAP Folic Acid (Folic Acid) 1 Mg Tablet 1 MG PO DAILY Vitamin #30 TAB Thiamine HCl (Gnp Vitamin B-1) 100 Mg Tab 100 MG PO DAILY Vitamin #30 TAB Continued Medications: Ezetimibe (Zetia) 10 Mg Tab 10 MG PO DAILY #30 Ref 0 TAB Alireza Mejia DO Jun 28, 2017 9:01 am
[2017-06-28 10:00] VITALS: PULSE 86
== END 2017-06-28 11:06 | disposition home or self-care (01) | DRG 872 ==
LOC: NEPC 03:20 → NEDA 06:09 → N04A 09:48
PROVIDERS: ADMIT Hospitalist; ATTEND Hospitalist
PROC: 5A09357 Assistance with Respiratory Ventilation, Less than 24 Consecutive Hours, Continuous Positive Airway Pressure (ICD-10-PCS; principal; 2017-06-26)
DX: A41.9 Sepsis, unspecified organism (principal); N17.9 Acute kidney failure, unspecified; J44.0 Chronic obstructive pulmonary disease with (acute) lower respiratory infection; J20.9 Acute bronchitis, unspecified; Z99.81 Dependence on supplemental oxygen; J44.1 Chronic obstructive pulmonary disease with (acute) exacerbation; E78.5 Hyperlipidemia, unspecified; R03.0 Elevated blood-pressure reading, without diagnosis of hypertension; F10.10 Alcohol abuse, uncomplicated; Z87.891 Personal history of nicotine dependence
CPT/HCPCS: 36600; 71010; 80048; 80053; 82805; 83880; 85025; 85610; 85730; 87040; 87070; 87205; 94002; 94150; 94640; 94664; J0456; J0696; J1644; J2920; J7050